=== PATIENT | male | born 1995 | race Caucasian/White ===

== ENCOUNTER 2023-07-24 13:48 | Emergency (ER) | payer OTHER, BC ==
[2023-07-24] MEDS ORDERED: Acetaminophen/oxyCODONE 325-5 MG Tab PO ONE (15:08)
[2023-07-24] MEDS ORDERED: Ibuprofen 800 MG Tab PO ONE (15:08)
[2023-07-24] MEDS ORDERED: Ketorolac 30 MG/ML SDV IVPUSH ONE (15:13)
[2023-07-24] MEDS ORDERED: fentaNYL 100 MCG/2 ML SDV IVPUSH ONE ×2 (15:13→15:50)
[2023-07-24] MEDS ORDERED: Sodium Chloride 0.9% 10 ML Syringe FLUSH PRN (15:14)
[2023-07-24] MEDS ORDERED: HYDROmorphone 1 MG/ML Syringe IVPUSH ONE (16:07)
[2023-07-24 17:28] VITALS: BP 109/57; PULSE 62
== END 2023-07-24 17:10 | disposition home or self-care (01) ==
LOC: JD.ED 13:48
DX: S92.001A Unspecified fracture of right calcaneus, initial encounter for closed fracture (principal); W13.2XXA Fall from, out of or through roof, initial encounter
CPT/HCPCS: 29515; 73590; 73610; 73700; 96374; 96375; 99284; A9270; J1170; J1885; J3010; J3490